=== PATIENT | female | born 1995 | race Caucasian/White ===

== ENCOUNTER 2018-06-16 02:45 | Emergency (ER) | payer OTHER ==
[~2018-06-16] VITALS: Ht 160 cm; Wt 56.7 kg
--- NOTE | 2018-06-16 03:00 | NUR ---
Patient to ER chair 1 to gown for evaluation. Side rails up.
[2018-06-16 03:17] VITALS: BP_SYST 125
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
--- NOTE | 2018-06-16 03:30 | NUR ---
ER at bedside examining patient.
--- NOTE | 2018-06-16 03:30 | NUR ---
Reddy logan in [facility] - 06/16/18 at 0612 by [email or web address] Pt was discharged, however, left without discharge paperwork.
[2018-06-16 04:00] VITALS: BP_SYST 125
--- NOTE | 2018-06-16 04:00 | NUR ---
Pt was discharged, however, left without discharge paperwork.
== END 2018-06-16 04:00 | disposition home or self-care (01) ==
LOC: SED 02:45
DX: Z04.1 Encounter for examination and observation following transport accident (principal); V47.5XXA Car driver injured in collision with fixed or stationary object in traffic accident, initial encounter; Y93.89 Activity, other specified; Y92.410 Unspecified street and highway as the place of occurrence of the external cause; Y99.8 Other external cause status
CPT/HCPCS: 99283